=== PATIENT | male | born 2000 | race Caucasian/White ===

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

== ENCOUNTER 2018-01-21 08:34 | Emergency (ER) | payer MEDICAID ==
[~2018-01-21] VITALS: Ht 180.3 cm; Wt 57.0 kg
[2018-01-21 08:36] VITALS: BP 114/70
[2018-01-21] MEDS ORDERED: BACITRACIN ZINC OINT 500U/GM, 0.9 GM ONE (09:23)
[2018-01-21] MEDS ORDERED: ACETAMINOPHEN 325 MG TABLET PO ONE (09:30)
[2018-01-21] MEDS ORDERED: ACETAMINOPHEN 325 MG TABLET ONE (10:00)
[2018-01-21] MEDS ORDERED: IBUPROFEN 200 MG TABLET PO ONE (10:30)
== END 2018-01-21 10:41 | disposition home or self-care (01) ==
LOC: ED 10:35
DX: S02.2XXA Fracture of nasal bones, initial encounter for closed fracture (principal); S00.01XA Abrasion of scalp, initial encounter; R55 Syncope and collapse; Y08.89XA Assault by other specified means, initial encounter; Y93.89 Activity, other specified; Y92.410 Unspecified street and highway as the place of occurrence of the external cause; Y99.8 Other external cause status
CPT/HCPCS: 70450; 99284

== ENCOUNTER 2018-08-08 22:58 | Emergency (ER) | payer MEDICAID ==
[~2018-08-08] VITALS: Ht 180.3 cm; Wt 54.7 kg
[2018-08-09 01:22] VITALS: BP 132/81
== END 2018-08-09 01:25 | disposition home or self-care (01) ==
LOC: ED 23:15
DX: S16.1XXA Strain of muscle, fascia and tendon at neck level, initial encounter (principal); S00.03XA Contusion of scalp, initial encounter; Y04.0XXA Assault by unarmed brawl or fight, initial encounter; Y93.89 Activity, other specified; Y92.009 Unspecified place in unspecified non-institutional (private) residence as the place of occurrence of the external cause; Y99.8 Other external cause status
CPT/HCPCS: 72125; 99284

== ENCOUNTER 2019-02-16 20:42 | Emergency (ER) | payer MEDICAID ==
[~2019-02-16] VITALS: Ht 180.3 cm; Wt 53.2 kg
--- NOTE | 2019-02-16 20:47 | NUR ---
NO ANSWER IN LOBBY
--- NOTE | 2019-02-16 23:47 | NUR ---
DR. DIA AT TO DISCUSS D/C PLAN WITH PT.
[2019-02-16] MEDS ORDERED: KETOROLAC 30 MG/1 ML ONE (23:52)
[2019-02-17] MEDS ORDERED: KETOROLAC 30 MG/1 ML IM ONE
[2019-02-17 00:16] VITALS: BP 100/65
== END 2019-02-17 00:17 | disposition home or self-care (01) ==
LOC: ED 22:37
DX: H57.12 Ocular pain, left eye (principal); H57.89 Other specified disorders of eye and adnexa
CPT/HCPCS: 96372; 99283; J1885

== ENCOUNTER 2019-03-21 16:53 | Emergency (ER) | payer MEDICAID, OTHER ==
[~2019-03-21] VITALS: Ht 180.3 cm; Wt 54.2 kg
[2019-03-21 16:59] VITALS: BP 118/57
== END 2019-03-21 18:30 | disposition home or self-care (01) ==
LOC: ED 17:43
DX: S16.1XXA Strain of muscle, fascia and tendon at neck level, initial encounter (principal); S30.810A Abrasion of lower back and pelvis, initial encounter; S40.212A Abrasion of left shoulder, initial encounter; S69.92XA Unspecified injury of left wrist, hand and finger(s), initial encounter; F17.210 Nicotine dependence, cigarettes, uncomplicated; W01.0XXA Fall on same level from slipping, tripping and stumbling without subsequent striking against object, initial encounter; Y93.79 Activity, other specified sports and athletics; Y92.89 Other specified places as the place of occurrence of the external cause; Y99.8 Other external cause status
CPT/HCPCS: 72050; 99283